=== PATIENT | male | born 1970 | race Caucasian/White ===

== ENCOUNTER 2017-04-06 00:27 | Observation (INO) ==
[2017-04-06] MEDS ORDERED: Naloxone 0.4 MG/ML INJ IVP ONE (00:44)
--- NOTE | 2017-04-06 00:51 | Emergency Department Note ---
Disposition Clinical Impression: Altered mental status Qualifiers: Altered mental status type: unspecified Qualified Code(s): R41.82 - Altered mental status, unspecified Disposition: Admitted As Inpatient Condition: Good Time of Disposition: 04:52 Altered Mental Status HPI - General Chief Complaint: ED Altered Mental Status Stated Complaint: AMS Time Seen by Provider: 04/06/17 00:44 Source: EMS Limitations: altered mental status Nursing Notes Reviewed: Yes Vital Signs Reviewed: Yes - History of Present Illness HPI Narrative: 46-year-old male who arrives via squad with altered mental status. She reported patient appeared confused at all like and was transported here. No reported injuries, alcohol use, drug use. - Related Data Home Medications Medication Instructions Recorded Confirmed Clonidine HCl 05/23/15 05/23/15 Depakote (12 HR) 05/23/15 05/23/15 Perphenazine 05/23/15 05/23/15 Allergies Allergy/AdvReac Type Severity Reaction Status Date / Time No Known Allergies Allergy Verified 05/23/15 17:21 All systems ED: reviewed and negative except as stated. Past Medical History - Past Medical History Medical history: Reports: hypertension Surgical history: Reports: no surgical history Psychiatric history: Reports: bipolar - Social History Smoking Status: Current every day smoker Smokeless Tobacco Status: No Alcohol use: Reports: none Drug use: Reports: none Physical Exam - General Limitations: altered mental status General appearance: in no apparent distress, obtunded - Head Head exam: atraumatic - Eye Eye exam: Absent: conjunctival injection - Expanded Eye Exam Eyelids: bilateral: normal inspection Pupils: Bilateral: regular, round, reactive Sclera/Conjunctival: bilateral: exudate Cornea: bilateral: Normal Inspection - ENT ENT exam: mucous membranes moist - Neck Neck exam: Present: normal inspection - Chest Chest inspection: Present: symmetric chest wall rise - Respiratory Respiratory exam: Absent: respiratory distress - Cardiovascular Cardiovascular exam: Present: regular rate, normal rhythm - Abdominal Exam Abdominal exam: Present: soft, Non-Tender - Extremities Exam Extremities exam: Present: normal inspection, full ROM, normal capillary refill - Back Exam Back exam: Present: full ROM - Neurological Exam Neurological exam: Present: alert, oriented X3 - Expanded Neurological Exam Patient oriented to: Present: person. Absent: place, time Speech: Present: fluid speech Cranial nerves: gag reflex (IX): Normal Coma Scale Eye Opening: To Pain Coma Scale Motor Response: Localizes to Pain Coma Scale Verbal Response: Confused Coma Scale Total: 11 - Psychiatric Psychiatric exam: Present: normal affect, normal mood - Skin Skin exam: Present: warm, dry, intact, normal color. Absent: rash, cyanosis, diaphoresis Course Course Narrative: 46-year-old male who arrives via squad with reported altered mental status. Patient was found on the ground grabbing things. No reported fall. No Narcan in route. Patient seen and examined. Vitals stable. He is somnolent,confused, localizes to pain, eyes closed. BG 116. No response to IV Narcan. Discussed patient with Dr. Weir, who agreed for CT head for AMS evaluation. - Reevaluation(s) Reevaluation #1: Patient was discussed with Dr. Johns, who agreed to see patient in this department. Dr. Johns did visit patient, and per director of community center he advised admission to ICU. Time: 04:52 Vital Signs Temperature 98.8 F 04/06/17 00:29 Pulse Rate 108 04/06/17 00:29 Respiratory Rate 16 04/06/17 00:29 Blood Pressure 128/76 04/06/17 00:29 O2 Sat by Pulse Oximetry 96 04/06/17 00:29 Temperature 98.8 F 04/06/17 00:29 Pulse Rate 87 04/06/17 06:25 Respiratory Rate 18 04/06/17 06:25 Blood Pressure 128/75 04/06/17 06:25 O2 Sat by Pulse Oximetry 99 04/06/17 06:25 Oxygen Delivery Oxygen Delivery Room Air Altered Mental Status - [facility] Narrative Medical decision making narrative: Patient presents by squad with altered mental status. No reported drug use or intoxication. Patient appeared very somnolent, responded to pain, he was able to tell me his name, but the rest of his speech appeared to be comprehensible. Workup showed no evidence of infection, urine drug screen negative. CT negative. I saw no evidence of any injury or trauma. I discussed patient with Dr. Weir, also taste on the patient and agreed for admission for altered mental status. Patient was accepted by hospitalist, trauma, she also had a stomach patient and agreed for admission.. Prior to patient leaving the department, nursing reported the patient had appeared to be coming more alert. His vitals have been stable. Chest X-Ray 04/06/17 00:44 IMPRESSION: Study is limited due to low lung volumes. Otherwise no definite acute cardiopulmonary findings. D/ / 04/06/2017 07:00:49 Baltazar Rivas MD / [email or web address] Interpreting Provider: Baltazar Rivas MD Head CT 04/06/17 00:57 IMPRESSION: No acute intracranial abnormality. D/ / Sreekanth Espinoza MD / Sreekanth Espinoza MD Interpreting Provider: Sreekanth Espinoza MD All Lab Results (24 Hours) 04/06/17 04/06/17 04/06/17 Range/Units 00:51 01:47 01:47 WBC 9.1 (4.3-11.1) K/mcL RBC 4.05 L (4.19-5.50) M/mcL Hgb 13.2 (12.9-16.9) g/dL Hct 40.5 (37.5-50.1) % MCV 100.0 (83.0-100.0) fL MCH 32.6 (28.0-33.3) pg MCHC 32.6 (31.6-35.5) g/dL RDW 12.5 (11.5-14.5) % Plt Count 248 (140-400) K/mcL MPV 9.5 (9.4-12.4) fL Immature Gran % 0.8 (0-4) % Seg Neutrophils % 67.1 % Lymphocytes % 20.9 % Monocytes % 8.7 % Eosinophils % 1.6 % Basophils % 0.9 % Neutrophils # 6.1 (1.6-8.9) K/mcL Lymphocytes # 1.9 (0.6-4.6) K/mcL Monocytes # 0.8 (0.0-1.3) K/mcL Eosinophils # 0.2 (0.0-0.6) K/mcL Basophils # 0.1 (0.0-0.2) K/mcL Immature Plt Fraction 3.9 (1.1-6.1) % PT 11.7 (9.4-12.1) Seconds INR 1.1 APTT 32.5 (26.0-36.0) Seconds Carboxyhemoglobin (0-5) % Sodium (136-145) mEq/L Potassium (3.5-4.5) mEq/L Chloride (98-109) mEq/L Carbon Dioxide (19-29) mEq/L BUN (8-26) mg/dL Creatinine (0.72-1.25) mg/dL Est GFR ( Amer) (> 60) Est GFR (Non-Af Amer) (> 60) BUN/Creatinine Ratio (6-26) Glucose (70-99) mg/dL POC Glucose 116 H (58-89) Calculated Osmolality (280-300) Calcium (8.6-10.8) mg/dL Total Bilirubin (0.2-1.2) mg/dL Direct Bilirubin (0.0-0.5) mg/dL Indirect Bilirubin (0.0-1.2) mg/dL AST (5-34) Units/L ALT (0-55) Units/L Alkaline Phosphatase (38-126) Units/L Ammonia (18-72) mcmol/L Creatine Kinase (30-200) Units/L Troponin I (0-0.03) ng/mL Serum Total Protein (6.0-8.3) g/dL Albumin (3.5-5.0) g/dL Globulin (2.4-3.5) g/dL Albumin/Globulin Ratio (1.1-2.2) TSH (0.350-4.840) mcIU/mL Urine Color (Yellow) Urine Clarity (Clear) Urine pH (5.0-8.0) pH Units Ur Specific [place] (1.010-1.025) Urine Protein (Neg-Trace) mg/dL Urine Glucose (UA) (Normal) mg/dL Urine Ketones (Negative) mg/dL Urine Blood (Negative) Urine Nitrite (Negative) Urine Bilirubin (Negative) Urine Urobilinogen (Normal) mg/dL Ur Leukocyte Esterase (Negative) Ur Culture Indicated? (NO) Urine Opiates Screen (Viefkh=999) ng/mL Ur Barbiturates Screen (Kjtgwf=078) ng/mL Ur Phencyclidine Scrn (Cutoff=25) ng/mL Ur Amphetamines Screen (Mbpzyx=9916) ng/mL U Benzodiazepines Scrn (Xoijgt=033) ng/mL Urine Cocaine Screen (Cutoff= 300) ng/mL U Marijuana (THC) Screen (Cutoff = 50) ng/mL Ethyl Alcohol (0-10) mg/dL 04/06/17 04/06/17 04/06/17 Range/Units 01:47 01:47 01:47 WBC (4.3-11.1) K/mcL RBC (4.19-5.50) M/mcL Hgb (12.9-16.9) g/dL Hct (37.5-50.1) % MCV (83.0-100.0) fL MCH (28.0-33.3) pg MCHC (31.6-35.5) g/dL RDW (11.5-14.5) % Plt Count (140-400) K/mcL MPV (9.4-12.4) fL Immature Gran % (0-4) % Seg Neutrophils % % Lymphocytes % % Monocytes % % Eosinophils % % Basophils % % Neutrophils # (1.6-8.9) K/mcL Lymphocytes # (0.6-4.6) K/mcL Monocytes # (0.0-1.3) K/mcL Eosinophils # (0.0-0.6) K/mcL Basophils # (0.0-0.2) K/mcL Immature Plt Fraction (1.1-6.1) % PT (9.4-12.1) Seconds INR APTT (26.0-36.0) Seconds Carboxyhemoglobin (0-5) % Sodium 137 (136-145) mEq/L Potassium 3.7 (3.5-4.5) mEq/L Chloride 99 (98-109) mEq/L Carbon Dioxide 26 (19-29) mEq/L BUN 11 (8-26) mg/dL Creatinine 0.73 (0.72-1.25) mg/dL Est GFR ( Amer) > 60 (> 60) Est GFR (Non-Af Amer) > 60 (> 60) BUN/Creatinine Ratio 15 (6-26) Glucose 97 (70-99) mg/dL POC Glucose (58-89) Calculated Osmolality 283 (280-300) Calcium 9.5 (8.6-10.8) mg/dL Total Bilirubin 0.8 (0.2-1.2) mg/dL Direct Bilirubin 0.3 (0.0-0.5) mg/dL Indirect Bilirubin 0.5 (0.0-1.2) mg/dL AST 29 (5-34) Units/L ALT 51 (0-55) Units/L Alkaline Phosphatase 68 (38-126) Units/L Ammonia 32 (18-72) mcmol/L Creatine Kinase 245 H (30-200) Units/L Troponin I 0.00 (0-0.03) ng/mL Serum Total Protein 7.3 (6.0-8.3) g/dL Albumin 3.5 (3.5-5.0) g/dL Globulin 3.8 H (2.4-3.5) g/dL Albumin/Globulin Ratio 0.9 L (1.1-2.2) TSH (0.350-4.840) mcIU/mL Urine Color (Yellow) Urine Clarity (Clear) Urine pH (5.0-8.0) pH Units Ur Specific [place] (1.010-1.025) Urine Protein (Neg-Trace) mg/dL Urine Glucose (UA) (Normal) mg/dL Urine Ketones (Negative) mg/dL Urine Blood (Negative) Urine Nitrite (Negative) Urine Bilirubin (Negative) Urine Urobilinogen (Normal) mg/dL Ur Leukocyte Esterase (Negative) Ur Culture Indicated? (NO) Urine Opiates Screen (Bjtiau=556) ng/mL Ur Barbiturates Screen (Roouwl=690) ng/mL Ur Phencyclidine Scrn (Cutoff=25) ng/mL Ur Amphetamines Screen (Stpksq=1002) ng/mL U Benzodiazepines Scrn (Myvhyl=415) ng/mL Urine Cocaine Screen (Cutoff= 300) ng/mL U Marijuana (THC) Screen (Cutoff = 50) ng/mL Ethyl Alcohol < 10 (0-10) mg/dL 04/06/17 04/06/17 04/06/17 Range/Units 01:47 02:00 02:00 WBC (4.3-11.1) K/mcL RBC (4.19-5.50) M/mcL Hgb (12.9-16.9) g/dL Hct (37.5-50.1) % MCV (83.0-100.0) fL MCH (28.0-33.3) pg MCHC (31.6-35.5) g/dL RDW (11.5-14.5) % Plt Count (140-400) K/mcL MPV (9.4-12.4) fL Immature Gran % (0-4) % Seg Neutrophils % % Lymphocytes % % Monocytes % % Eosinophils % % Basophils % % Neutrophils # (1.6-8.9) K/mcL Lymphocytes # (0.6-4.6) K/mcL Monocytes # (0.0-1.3) K/mcL Eosinophils # (0.0-0.6) K/mcL Basophils # (0.0-0.2) K/mcL Immature Plt Fraction (1.1-6.1) % PT (9.4-12.1) Seconds INR APTT (26.0-36.0) Seconds Carboxyhemoglobin (0-5) % Sodium (136-145) mEq/L Potassium (3.5-4.5) mEq/L Chloride (98-109) mEq/L Carbon Dioxide (19-29) mEq/L BUN (8-26) mg/dL Creatinine (0.72-1.25) mg/dL Est GFR ( Amer) (> 60) Est GFR (Non-Af Amer) (> 60) BUN/Creatinine Ratio (6-26) Glucose (70-99) mg/dL POC Glucose (58-89) Calculated Osmolality (280-300) Calcium (8.6-10.8) mg/dL Total Bilirubin (0.2-1.2) mg/dL Direct Bilirubin (0.0-0.5) mg/dL Indirect Bilirubin (0.0-1.2) mg/dL AST (5-34) Units/L ALT (0-55) Units/L Alkaline Phosphatase (38-126) Units/L Ammonia (18-72) mcmol/L Creatine Kinase (30-200) Units/L Troponin I (0-0.03) ng/mL Serum Total Protein (6.0-8.3) g/dL Albumin (3.5-5.0) g/dL Globulin (2.4-3.5) g/dL Albumin/Globulin Ratio (1.1-2.2) TSH 1.150 (0.350-4.840) mcIU/mL Urine Color Dark Yellow (Yellow) Urine Clarity Clear (Clear) Urine pH 5.5 (5.0-8.0) pH Units Ur Specific [place] 1.027 H (1.010-1.025) Urine Protein Negative (Neg-Trace) mg/dL Urine Glucose (UA) Normal (Normal) mg/dL Urine Ketones Trace H (Negative) mg/dL Urine Blood Negative (Negative) Urine Nitrite Negative (Negative) Urine Bilirubin Negative (Negative) Urine Urobilinogen Normal (Normal) mg/dL Ur Leukocyte Esterase Negative (Negative) Ur Culture Indicated? NO (NO) Urine Opiates Screen Negative (Ojbxnc=225) ng/mL Ur Barbiturates Screen Negative (Yjailt=678) ng/mL Ur Phencyclidine Scrn Negative (Cutoff=25) ng/mL Ur Amphetamines Screen Negative (Pxboub=1947) ng/mL U Benzodiazepines Scrn Negative (Yuayfs=257) ng/mL Urine Cocaine Screen Negative (Cutoff= 300) ng/mL U Marijuana (THC) Screen Negative (Cutoff = 50) ng/mL Ethyl Alcohol (0-10) mg/dL 04/06/17 Range/Units 06:28 WBC (4.3-11.1) K/mcL RBC (4.19-5.50) M/mcL Hgb (12.9-16.9) g/dL Hct (37.5-50.1) % MCV (83.0-100.0) fL MCH (28.0-33.3) pg MCHC (31.6-35.5) g/dL RDW (11.5-14.5) % Plt Count (140-400) K/mcL MPV (9.4-12.4) fL Immature Gran % (0-4) % Seg Neutrophils % % Lymphocytes % % Monocytes % % Eosinophils % % Basophils % % Neutrophils # (1.6-8.9) K/mcL Lymphocytes # (0.6-4.6) K/mcL Monocytes # (0.0-1.3) K/mcL Eosinophils # (0.0-0.6) K/mcL Basophils # (0.0-0.2) K/mcL Immature Plt Fraction (1.1-6.1) % PT (9.4-12.1) Seconds INR APTT (26.0-36.0) Seconds Carboxyhemoglobin 5.3 H (0-5) % Sodium (136-145) mEq/L Potassium (3.5-4.5) mEq/L Chloride (98-109) mEq/L Carbon Dioxide (19-29) mEq/L BUN (8-26) mg/dL Creatinine (0.72-1.25) mg/dL Est GFR ( Amer) (> 60) Est GFR (Non-Af Amer) (> 60) BUN/Creatinine Ratio (6-26) Glucose (70-99) mg/dL POC Glucose (58-89) Calculated Osmolality (280-300) Calcium (8.6-10.8) mg/dL Total Bilirubin (0.2-1.2) mg/dL Direct Bilirubin (0.0-0.5) mg/dL Indirect Bilirubin (0.0-1.2) mg/dL AST (5-34) Units/L ALT (0-55) Units/L Alkaline Phosphatase (38-126) Units/L Ammonia (18-72) mcmol/L Creatine Kinase (30-200) Units/L Troponin I (0-0.03) ng/mL Serum Total Protein (6.0-8.3) g/dL Albumin (3.5-5.0) g/dL Globulin (2.4-3.5) g/dL Albumin/Globulin Ratio (1.1-2.2) TSH (0.350-4.840) mcIU/mL Urine Color (Yellow) Urine Clarity (Clear) Urine pH (5.0-8.0) pH Units Ur Specific [place] (1.010-1.025) Urine Protein (Neg-Trace) mg/dL Urine Glucose (UA) (Normal) mg/dL Urine Ketones (Negative) mg/dL Urine Blood (Negative) Urine Nitrite (Negative) Urine Bilirubin (Negative) Urine Urobilinogen (Normal) mg/dL Ur Leukocyte Esterase (Negative) Ur Culture Indicated? (NO) Urine Opiates Screen (Ilaopy=807) ng/mL Ur Barbiturates Screen (Unxrbs=986) ng/mL Ur Phencyclidine Scrn (Cutoff=25) ng/mL Ur Amphetamines Screen (Jyracw=7600) ng/mL U Benzodiazepines Scrn (Gklnwc=884) ng/mL Urine Cocaine Screen (Cutoff= 300) ng/mL U Marijuana (THC) Screen (Cutoff = 50) ng/mL Ethyl Alcohol (0-10) mg/dL - Lab Data Lab results reviewed: Yes I reviewed the patient's lab results. Result diagrams: 04/06/17 01:47 04/06/17 01:47 Lab Results 04/06/17 04/06/17 04/06/17 Range/Units 00:51 01:47 01:47 WBC 9.1 (4.3-11.1) K/mcL RBC 4.05 L (4.19-5.50) M/mcL Hgb 13.2 (12.9-16.9) g/dL Hct 40.5 (37.5-50.1) % MCV 100.0 (83.0-100.0) fL MCH 32.6 (28.0-33.3) pg MCHC 32.6 (31.6-35.5) g/dL RDW 12.5 (11.5-14.5) % Plt Count 248 (140-400) K/mcL MPV 9.5 (9.4-12.4) fL Immature Gran % 0.8 (0-4) % Seg Neutrophils % 67.1 % Lymphocytes % 20.9 % Monocytes % 8.7 % Eosinophils % 1.6 % Basophils % 0.9 % Neutrophils # 6.1 (1.6-8.9) K/mcL Lymphocytes # 1.9 (0.6-4.6) K/mcL Monocytes # 0.8 (0.0-1.3) K/mcL Eosinophils # 0.2 (0.0-0.6) K/mcL Basophils # 0.1 (0.0-0.2) K/mcL Immature Plt Fraction 3.9 (1.1-6.1) % PT 11.7 (9.4-12.1) Seconds INR 1.1 APTT 32.5 (26.0-36.0) Seconds Sodium (136-145) mEq/L Potassium (3.5-4.5) mEq/L Chloride (98-109) mEq/L Carbon Dioxide (19-29) mEq/L BUN (8-26) mg/dL Creatinine (0.72-1.25) mg/dL Est GFR ( Amer) (> 60) Est GFR (Non-Af Amer) (> 60) BUN/Creatinine Ratio (6-26) Glucose (70-99) mg/dL POC Glucose 116 H (58-89) Calculated Osmolality (280-300) Calcium (8.6-10.8) mg/dL Total Bilirubin (0.2-1.2) mg/dL Direct Bilirubin (0.0-0.5) mg/dL Indirect Bilirubin (0.0-1.2) mg/dL AST (5-34) Units/L ALT (0-55) Units/L Alkaline Phosphatase (38-126) Units/L Ammonia (18-72) mcmol/L Creatine Kinase (30-200) Units/L Troponin I (0-0.03) ng/mL Serum Total Protein (6.0-8.3) g/dL Albumin (3.5-5.0) g/dL Globulin (2.4-3.5) g/dL Albumin/Globulin Ratio (1.1-2.2) TSH (0.350-4.840) mcIU/mL Urine Color (Yellow) Urine Clarity (Clear) Urine pH (5.0-8.0) pH Units Ur Specific [place] (1.010-1.025) Urine Protein (Neg-Trace) mg/dL Urine Glucose (UA) (Normal) mg/dL Urine Ketones (Negative) mg/dL Urine Blood (Negative) Urine Nitrite (Negative) Urine Bilirubin (Negative) Urine Urobilinogen (Normal) mg/dL Ur Leukocyte Esterase (Negative) Ur Culture Indicated? (NO) Urine Opiates Screen (Nvysej=978) ng/mL Ur Barbiturates Screen (Sqguxn=057) ng/mL Ur Phencyclidine Scrn (Cutoff=25) ng/mL Ur Amphetamines Screen (Xzawzt=9948) ng/mL U Benzodiazepines Scrn (Cogfew=769) ng/mL Urine Cocaine Screen (Cutoff= 300) ng/mL U Marijuana (THC) Screen (Cutoff = 50) ng/mL Ethyl Alcohol (0-10) mg/dL 04/06/17 04/06/17 04/06/17 Range/Units 01:47 01:47 01:47 WBC (4.3-11.1) K/mcL RBC (4.19-5.50) M/mcL Hgb (12.9-16.9) g/dL Hct (37.5-50.1) % MCV (83.0-100.0) fL MCH (28.0-33.3) pg MCHC (31.6-35.5) g/dL RDW (11.5-14.5) % Plt Count (140-400) K/mcL MPV (9.4-12.4) fL Immature Gran % (0-4) % Seg Neutrophils % % Lymphocytes % % Monocytes % % Eosinophils % % Basophils % % Neutrophils # (1.6-8.9) K/mcL Lymphocytes # (0.6-4.6) K/mcL Monocytes # (0.0-1.3) K/mcL Eosinophils # (0.0-0.6) K/mcL Basophils # (0.0-0.2) K/mcL Immature Plt Fraction (1.1-6.1) % PT (9.4-12.1) Seconds INR APTT (26.0-36.0) Seconds Sodium 137 (136-145) mEq/L Potassium 3.7 (3.5-4.5) mEq/L Chloride 99 (98-109) mEq/L Carbon Dioxide 26 (19-29) mEq/L BUN 11 (8-26) mg/dL Creatinine 0.73 (0.72-1.25) mg/dL Est GFR ( Amer) > 60 (> 60) Est GFR (Non-Af Amer) > 60 (> 60) BUN/Creatinine Ratio 15 (6-26) Glucose 97 (70-99) mg/dL POC Glucose (58-89) Calculated Osmolality 283 (280-300) Calcium 9.5 (8.6-10.8) mg/dL Total Bilirubin 0.8 (0.2-1.2) mg/dL Direct Bilirubin 0.3 (0.0-0.5) mg/dL Indirect Bilirubin 0.5 (0.0-1.2) mg/dL AST 29 (5-34) Units/L ALT 51 (0-55) Units/L Alkaline Phosphatase 68 (38-126) Units/L Ammonia 32 (18-72) mcmol/L Creatine Kinase 245 H (30-200) Units/L Troponin I 0.00 (0-0.03) ng/mL Serum Total Protein 7.3 (6.0-8.3) g/dL Albumin 3.5 (3.5-5.0) g/dL Globulin 3.8 H (2.4-3.5) g/dL Albumin/Globulin Ratio 0.9 L (1.1-2.2) TSH (0.350-4.840) mcIU/mL Urine Color (Yellow) Urine Clarity (Clear) Urine pH (5.0-8.0) pH Units Ur Specific [place] (1.010-1.025) Urine Protein (Neg-Trace) mg/dL Urine Glucose (UA) (Normal) mg/dL Urine Ketones (Negative) mg/dL Urine Blood (Negative) Urine Nitrite (Negative) Urine Bilirubin (Negative) Urine Urobilinogen (Normal) mg/dL Ur Leukocyte Esterase (Negative) Ur Culture Indicated? (NO) Urine Opiates Screen (Yshtew=650) ng/mL Ur Barbiturates Screen (Fwrteg=467) ng/mL Ur Phencyclidine Scrn (Cutoff=25) ng/mL Ur Amphetamines Screen (Fljyux=6624) ng/mL U Benzodiazepines Scrn (Elywle=616) ng/mL Urine Cocaine Screen (Cutoff= 300) ng/mL U Marijuana (THC) Screen (Cutoff = 50) ng/mL Ethyl Alcohol < 10 (0-10) mg/dL 04/06/17 04/06/17 04/06/17 Range/Units 01:47 02:00 02:00 WBC (4.3-11.1) K/mcL RBC (4.19-5.50) M/mcL Hgb (12.9-16.9) g/dL Hct (37.5-50.1) % MCV (83.0-100.0) fL MCH (28.0-33.3) pg MCHC (31.6-35.5) g/dL RDW (11.5-14.5) % Plt Count (140-400) K/mcL MPV (9.4-12.4) fL Immature Gran % (0-4) % Seg Neutrophils % % Lymphocytes % % Monocytes % % Eosinophils % % Basophils % % Neutrophils # (1.6-8.9) K/mcL Lymphocytes # (0.6-4.6) K/mcL Monocytes # (0.0-1.3) K/mcL Eosinophils # (0.0-0.6) K/mcL Basophils # (0.0-0.2) K/mcL Immature Plt Fraction (1.1-6.1) % PT (9.4-12.1) Seconds INR APTT (26.0-36.0) Seconds Sodium (136-145) mEq/L Potassium (3.5-4.5) mEq/L Chloride (98-109) mEq/L Carbon Dioxide (19-29) mEq/L BUN (8-26) mg/dL Creatinine (0.72-1.25) mg/dL Est GFR ( Amer) (> 60) Est GFR (Non-Af Amer) (> 60) BUN/Creatinine Ratio (6-26) Glucose (70-99) mg/dL POC Glucose (58-89) Calculated Osmolality (280-300) Calcium (8.6-10.8) mg/dL Total Bilirubin (0.2-1.2) mg/dL Direct Bilirubin (0.0-0.5) mg/dL Indirect Bilirubin (0.0-1.2) mg/dL AST (5-34) Units/L ALT (0-55) Units/L Alkaline Phosphatase (38-126) Units/L Ammonia (18-72) mcmol/L Creatine Kinase (30-200) Units/L Troponin I (0-0.03) ng/mL Serum Total Protein (6.0-8.3) g/dL Albumin (3.5-5.0) g/dL Globulin (2.4-3.5) g/dL Albumin/Globulin Ratio (1.1-2.2) TSH 1.150 (0.350-4.840) mcIU/mL Urine Color Dark Yellow (Yellow) Urine Clarity Clear (Clear) Urine pH 5.5 (5.0-8.0) pH Units Ur Specific [place] 1.027 H (1.010-1.025) Urine Protein Negative (Neg-Trace) mg/dL Urine Glucose (UA) Normal (Normal) mg/dL Urine Ketones Trace H (Negative) mg/dL Urine Blood Negative (Negative) Urine Nitrite Negative (Negative) Urine Bilirubin Negative (Negative) Urine Urobilinogen Normal (Normal) mg/dL Ur Leukocyte Esterase Negative (Negative) Ur Culture Indicated? NO (NO) Urine Opiates Screen Negative (Jmatfv=057) ng/mL Ur Barbiturates Screen Negative (Pzhtqa=621) ng/mL Ur Phencyclidine Scrn Negative (Cutoff=25) ng/mL Ur Amphetamines Screen Negative (Mokxyz=9028) ng/mL U Benzodiazepines Scrn Negative (Forjwg=240) ng/mL Urine Cocaine Screen Negative (Cutoff= 300) ng/mL U Marijuana (THC) Screen Negative (Cutoff = 50) ng/mL Ethyl Alcohol (0-10) mg/dL - Radiology Data Radiology results reviewed: Yes I reviewed the patient's radiology results. TPA Checklist - LKW: 3-4.5 hrs Add. Warnings/Precautions Patient/family understanding: The patient/family members have been counseled and understood the risk, benefit , and alternatives of treatment. Attestation Statement - Attestation Attestation: I, Nilson Weir MD, personally evaluated this patient and discussed their management with the midlevel provicer, PAC/INFORMATION SERVICES MANAGER. I reviewed the midlevel provider 's note and agree with the documented findings, medical decision making, and plan of care. 46-year-old male presents to the emergency department by ambulance after he was apparently found in the street for side the street with altered mental status. Here the patient appears to be overmedicated. He responds to physical stimuli. He does wake up with stimulation and mumbles but it is difficult to understand. He did admit to me that he took some extra medicine tonight. On examination patient is a well-developed well-nourished male who is altered but responds to physical stimuli. There is no cyanosis or diaphoresis. Vital signs stable. PERRL. Bilateral conjunctival injection. Mucous membranes dry. Neck is supple and nontender. No lymphadenopathy. Breath sounds are clear and equal bilaterally. Heart regular rate and rhythm. Abdomen soft and nontender with normal bowel sounds. No tympany or distention. No gross focal neurological deficits. Labs reviewed. Chest x-ray negative. Head CT negative. EKG normal. Patient observed here in the emergency department for several hours with minimal improvement in his mental status. The hospitalist, Dr. Johns, was consulted and accepted admission of the patient.
[2017-04-06 01:55] LABS: Basophils # 0.1 K/mcL (0.0-0.2); Basophils % 0.9 %; Eosinophils # 0.2 K/mcL (0.0-0.6); Eosinophils % 1.6 %; Hematocrit 40.5 % (37.5-50.1); Hemoglobin 13.2 g/dL (12.9-16.9); Immature Granulocytes % 0.8 % (0-4); Immature Platelets 3.9 % (1.1-6.1); Lymphocytes # 1.9 K/mcL (0.6-4.6); Lymphocytes % 20.9 %; Mean Corpuscular HGB Conc 32.6 g/dL (31.6-35.5); Mean Corpuscular Hemoglobin 32.6 pg (28.0-33.3); Mean Platelet Volume 9.5 fL (9.4-12.4); Monocytes # 0.8 K/mcL (0.0-1.3); Monocytes % 8.7 %; Neutrophils # 6.1 K/mcL (1.6-8.9); Platelet Count 248 K/mcL (140-400); Red Blood Count 4.05 M/mcL (4.19-5.50); Red Cell Distribution Width 12.5 % (11.5-14.5); Segmented Neutrophils % 67.1 %
[2017-04-06] MEDS ORDERED: 0.9 % Sodium Chloride 1,000 ML IVC ONE ×2 (01:59→02:36)
[2017-04-06 02:00] LABS: INR 1.1; Prothrombin Time 11.7 Seconds (9.4-12.1)
[2017-04-06 02:02] LABS: Activated Partial Thrombo Time 32.5 Seconds (26.0-36.0)
[2017-04-06 02:10] LABS: Alanine Aminotransferase 51 Units/L (0-55); Albumin 3.5 g/dL (3.5-5.0); Albumin/Globulin Ratio 0.9 (1.1-2.2); Alkaline Phosphatase 68 Units/L (38-126); Aspartate Amino Transferase 29 Units/L (5-34); BUN/Creatinine Ratio 15 (6-26); Bilirubin,Direct 0.3 mg/dL (0.0-0.5); Bilirubin,Indirect 0.5 mg/dL (0.0-1.2); Bilirubin,Total 0.8 mg/dL (0.2-1.2); Blood Urea Nitrogen 11 mg/dL (8-26); Calcium 9.5 mg/dL (8.6-10.8); Carbon Dioxide 26 mEq/L (19-29); Chloride 99 mEq/L (98-109); Creatine Kinase 245 Units/L (30-200); Globulin 3.8 g/dL (2.4-3.5); Glucose 97 mg/dL (70-99); Osmolality,Calculated 283 (280-300); Potassium 3.7 mEq/L (3.5-4.5); Sodium 137 mEq/L (136-145); Total Protein 7.3 g/dL (6.0-8.3); eGFR For African Americans > 60 (> 60); eGFR For Non-African Americans > 60 (> 60)
[2017-04-06 02:12] LABS: Ethanol < 10 mg/dL (0-10)
[2017-04-06 02:19] LABS: Bilirubin,Urine Negative (Negative); Blood,Urine Negative (Negative); Clarity,Urine Clear (Clear); Color,Urine Dark Yellow (Yellow); Glucose,Urine (UA) Normal (Normal); Ketones,Urine Trace mg/dL (Negative); Leukocyte Esterase,Urine Negative (Negative); Nitrite,Urine Negative (Negative); PH,Urine 5.5 pH Units (5.0-8.0); Protein,Urine Negative (Neg-Trace); Specific Gravity,Urine 1.027 (1.010-1.025); Urobilinogen,Urine Normal (Normal)
[2017-04-06 02:25] LABS: Amphetamine Screen,Urine Negative ng/mL (Cutoff=1000); Barbiturate Screen,Urine Negative ng/mL (Cutoff=200); Benzodiazepines Screen,Urine Negative ng/mL (Cutoff=200); Cannabinoid Screen,Urine Negative ng/mL (Cutoff = 50); Cocaine Screen,Urine Negative ng/mL (Cutoff= 300); Opiate Screen,Urine Negative ng/mL (Cutoff=300); Phencyclidine Screen,Urine Negative ng/mL (Cutoff=25)
[2017-04-06] MEDS ORDERED: Naloxone 0.4 MG/ML INJ IVP PRN (05:06)
--- NOTE | 2017-04-06 05:13 | Internal Med History&Physical ---
Date of Encounter: 04/06/17 Time of Encounter: 04:45 Assessment and Plan (1) Altered mental status Current visit: Yes Status: Acute - Found on ground, may be in the garage. - Unknown etiology at this time. Differentials include seizure (given questionable seizure history), carbon monoxide poisoning (given patient may be found in a garage), intoxication (but UDS and serum EtOH are so far negative), infections (doubt given normal WBC and UA does not suggest UTI). - Will obtain EEG for further evaluation, start Dilantin and seizure precaution. - Will also check carboxyhemoglobin, ABG and TSH. - Continue IV NS. - Closely monitor. Qualifiers: Altered mental status type: unspecified Qualified Code(s): R41.82 - Altered mental status, unspecified Internal Medicine - H&P: HPI Chief complaint: Altered mental status Admitted From: Emergency Dept Plans for Post Hospital Care: Home History of present illness: Mr. Orlando is a 46 year old male with unknown PMH who was sent to [facility] ED via EMS after being found on the ground grabbing things. IV Narca was given but no significant response noted. On the encounter, patient remains somnolent but arousable to verbal stimuli. Patient is able to tell me he is in hospital and the year is 2017, no pain or shortness of breath. But he cannot answer my questions appropriately. No family member at bedside. So much of history was obtained from review of medical records and talking to ED staffs. Per patient's nurse, patient was found in a garage. Patient's sitter feels that patient's mental status slowly improves over time. Depakote was listed as one of his home medications back in [address] [address] [place] CT head in ED found no acute intracranial abnormality. Labs are unremarkable with UA negative for UTI and negative UDS & serum EtOH level. Past Med Surg Social Fam HX - Past Medical History Medical history: hypertension Psychiatric history: bipolar - Past Surgical History Surgical History: no surgical history - Social History Smoking Status: Current every day smoker Smokeless Tobacco Status: No Alcohol use: none Drug use: none Internal Medicine - H&P: Meds Clonidine HCl 05/23/15 [History] Depakote (12 HR) 05/23/15 [History] Perphenazine 05/23/15 [History] Allergies No Known Allergies Allergy (Verified 05/23/15 17:21) ROS unobtainable: due to mental status All Systems PM: A 10-system review of systems was performed and is negative for pertinent findings except as documented above in the HPI. - Constitutional Vitals: Temp Pulse Resp BP Pulse Ox 98.8 F 86 20 139/86 98 04/06/17 00:29 04/06/17 04:54 04/06/17 04:54 04/06/17 04:54 04/06/17 04:54 General appearance: Present: A&O X 2 (Oriented to self, "hospital" and "2017". GCS 13.), no acute distress. Absent: answers questions appropriately - Head Head exam: Present: atraumatic, normocephalic - Eye Eye exam: Present: PERRL, conjuntiva pink, sclera anicteric - Neck Neck exam general surgery: Present: supple, trachea midline. Absent: lymphadenopathy - Respiratory Respiratory exam: Present: CTAB. Absent: accessory muscle use, rales, rhonchi, wheezes - Cardiovascular Cardiovascular exam: Present: RRR, +S1, +S2. Absent: diastolic murmur, gallop, rubs, systolic murmur - GI/Abdominal GI/Abdominal exam: Present: normal bowel sounds, soft, no peritoneal signs. Absent: distended, tenderness - Extremities Exam Extremities exam: Present: warm, radial pulses palpable and symetrical. Absent : calf tenderness, cyanotic, pedal edema - Neurological Exam Neurological exam: Absent: pronater drift, facial droop Additional comments: Limited as patient is hypersomnolent and is unable to answer question or follow command appropriately. - Skin Skin exam: Present: dry, intact Internal Med - H&P Results - Labs CBC & Chem 7: 04/06/17 01:47 04/06/17 01:47 Labs: Short CBC 04/06/17 Range/Units 01:47 WBC 9.1 (4.3-11.1) K/mcL Hgb 13.2 (12.9-16.9) g/dL Hct 40.5 (37.5-50.1) % Plt Count 248 (140-400) K/mcL Neutrophils # 6.1 (1.6-8.9) K/mcL BMP 04/06/17 01:47 Sodium 137 Potassium 3.7 Chloride 99 Carbon Dioxide 26 BUN 11 Creatinine 0.73 Glucose 97 Calcium 9.5 Cardiac Enzymes 04/06/17 Range/Units 01:47 Troponin I 0.00 (0-0.03) ng/mL Liver Function 04/06/17 Range/Units 01:47 Total Bilirubin 0.8 (0.2-1.2) mg/dL Direct Bilirubin 0.3 (0.0-0.5) mg/dL AST 29 (5-34) Units/L ALT 51 (0-55) Units/L Alkaline Phosphatase 68 (38-126) Units/L Albumin 3.5 (3.5-5.0) g/dL Urine 04/06/17 Range/Units 02:00 Urine Color Dark Yellow (Yellow) Urine Clarity Clear (Clear) Urine pH 5.5 (5.0-8.0) pH Units Ur Specific [place] 1.027 H (1.010-1.025) Urine Protein Negative (Neg-Trace) mg/dL Urine Glucose (UA) Normal (Normal) mg/dL - Impressions ITS Impressions Chest X-Ray 04/06/17 00:44 IMPRESSION: Study is limited due to low lung volumes. Otherwise no definite acute cardiopulmonary findings D/ / Baltazar Rivas MD / Baltazar Rivas MD Interpreting Provider: Baltazar Rivas MD Head CT 04/06/17 00:57 IMPRESSION: No acute intracranial abnormality. D/ / Sreekanth Espinoza MD / Sreekanth Espinoza MD Interpreting Provider: Sreekanth Espinoza MD
[2017-04-06] MEDS ORDERED: Phenytoin 1,000 MG in SYRINGE 1 EACH IVPB ONE (05:14)
--- NOTE | 2017-04-06 05:22 | Event Note ---
Date of Encounter: 04/06/17 Time of Encounter: 05:19 Patient seen and examined. Found unresponsive in street (or garage). Etiology unclear and he is still unable to provide history. But he is becoming more alert and oriented. Urine drug screen negative. He is on depakote at home and mentioned that he had history of seizure but not in a long time. Start phenytoin. Check carbon monoxide level. CT head without bleed. He is aferile without leucocytosis. He is maintaining his airway, has a positive cough and gag. GCS 13
[2017-04-06] MEDS: 0.9 % Sodium Chloride 1,000 ML IVC SCH ×2 (06:31→16:19)
--- NOTE | 2017-04-06 10:36 | Neurology - Consult Note ---
Date of Encounter: 04/06/17 Time of Encounter: 10:32 Assessment and Plan (1) Altered mental status Current Visit: Yes Status: Acute 46-year old man with psychiatric history, on depakote with AMS. Broad differential. Carbon monoxide poisoning was suspected given the circumstances - confirmation awaited. Normal ammonia (although on depakote). UDS negative, UA negative. Etiology unclear. From a neurology standpoint, stroke and seizures should be excluded. MRI brain without contrast, EEG (both for Friday) . Post-ictal psychosis can present like this as well, but given his psychiatric history, it is more likely a manic phase. Need to check serum toxicology for other drugs, such as K2 spice. For completeness, thiamine deficiency should be considered (pt should be placed on thiamine iv (banana bag) ; testing B1 levels will take a long time to come back. Seizure precautions. [place] protocol. IV ativan 1 mg x1 to see if the behavior change is related to ictal process. Given the multivarious neuropsychiatric symptoms, consider urine /serum copper testing - for Emmanuel's or rarely, [place]'s or Fahr's disease ( this can be done in outpatient setting). Will follow, after these results are back. Pt will need outpatient follow-up with Dr. Lundberg/Javi. Qualifiers: Altered mental status type: unspecified Qualified Code(s): R41.82 - Altered mental status, unspecified History of Present Illness Chief complaint: AMS HPI: Mr. Orlando is a 46 year old male with prior history of hypertension (states he is on lisinopril) and multiple psychiatric issues (on depakote for this), who was apparently found down in his garage and was brought to the medical center. He apparently lives with his friends (Ana?), previously (has two children), but not much in contact with any of his family members. He states that he is not sure why he came to the hospital, but knows he is at the [facility]. He states that the last thing he remembers is that he was in his garage. He reports that he has no history of seizures. He states he smokes and drinks (only occasionally, but a lot when he does). No drugs - but he recently had a quarrel with his roommates - unclear why and unclear if drug was involved. No fevers/chills/sob/palpitations. No prior history of strokes. He has history of manic depressive disorder. Ammonia 37 (nl), UA - nl, UDS - nl. Past Med Surg Social Fam HX - Past Medical History Medical history: hypertension Psychiatric history: bipolar, depression, schizophrenia, other (schizoaffective disorder, manic disorder) - Past Surgical History Surgical History: no surgical history - Social History Smoking Status: Current every day smoker Smokeless Tobacco Status: No Alcohol use: occasionally (but lots, when he does) Drug use: none, other (unclear) Occupational status: unemployed Current living situation: Other (living with friends?) Activity Level: Independent ambulation Additional social history: . has 2 kids. has one sister. No family contact, however. - Family History Mother History Unknown: Yes Medications and Allergies Clonidine HCl 05/23/15 [History] Depakote (12 HR) 05/23/15 [History] Perphenazine 05/23/15 [History] Allergies No Known Allergies Allergy (Verified 05/23/15 17:21) All Systems: A 10-system review of systems was performed and is negative for pertinent findings except as documented above in the HPI. Physical Examination - Vital Signs Vital Signs: Initial Vital Signs Temp Pulse Resp BP Pulse Ox 98.8 F 108 16 128/76 96 04/06/17 00:29 04/06/17 00:29 04/06/17 00:29 04/06/17 00:29 04/06/17 00:29 Vital Signs - 24 hr 04/06/17 00:29 04/06/17 04:54 04/06/17 06:05 Temperature 98.8 F Pulse Rate 108 86 Respiratory Rate 16 20 20 Blood Pressure 128/76 139/86 139/86 O2 Sat by Pulse Oximetry 96 98 04/06/17 06:20 04/06/17 06:25 04/06/17 10:30 Temperature 97.9 F Pulse Rate 84 87 80 Respiratory Rate 18 20 Blood Pressure 128/75 97/60 O2 Sat by Pulse Oximetry 99 97 - Exam Exam: Elongated calves. Has unstable gait. Left eye congenitally small, and with strabismus/dysconjugate gaze. No asterixis. - Constitutional General appearance: comfortable, other (disinhibted, dishevelled) - Neurologic Sensorimotor examination: intact Detailed motor examination: full strength in all major muscle groups Motor examination - right side: 5: deltoids, biceps, triceps, wrist flexion, wrist extension, assistant center director, hip flexors, tibialis Anterior, quadriceps, toe extension (EHL), plantarflexion Motor examination - left side: 01/03: deltoids, biceps, triceps, wrist flexion, wrist extension, hip flexors, assistant center director, quadriceps, tibialis Anterior, toe extension (EHL), plantarflexion Detailed sensory examination: intact Reflex and gait examination: tandem gait (cannot perform) Reflexes: Biceps: 2+, Triceps: 2+, Brachioradialis: 2+, Patella: 2+, Achilles: 2 + Mental Status Examination: awake, alert, oriented to person, oriented to place, oriented to time, follows commands appropriately (flirtatious to staff; may be confabulating), answers questions appropriately, no agnosia, no aphasia, no aproxia, makes eye contact, follows simple commands Cranial nerve examination: PERRL, EOMI, visual koenig intact, corneal reflexes brisk symmetrically, sensory to face intact, mastication intact, no facial asymmetry is present, no dysarthria, hearing is intact symmetrically, soft palate elevates bilaterally upon phonation, gag reflex intact, flexes SCM and trapezius muscles symmetrically with full power, tongue protrudes midline, no atrophy or facial fasiculations present Cerebellar examination: no dysmetria (mild dysmetria on the right), performs finger to nose and heel to etienne symmetrically without ataxia, no gait ataxia, no truncal ataxia, no difficulty with rapid alternating movements Results - Laboratory Findings CBC and BMP: 04/06/17 01:47 04/06/17 01:47 Abnormal lab findings: Abnormal lab results RBC 4.05 M/mcL (4.19-5.50) L 04/06/17 01:47 Carboxyhemoglobin 5.3 % (0-5) H 04/06/17 06:28 POC Glucose 116 (58-89) H 04/06/17 00:51 Creatine Kinase 245 Units/L (30-200) H 04/06/17 01:47 Globulin 3.8 g/dL (2.4-3.5) H 04/06/17 01:47 Albumin/Globulin Ratio 0.9 (1.1-2.2) L 04/06/17 01:47 Ur Specific [place] 1.027 (1.010-1.025) H 04/06/17 02:00 Urine Ketones Trace mg/dL (Negative) H 04/06/17 02:00 Laboratory Results WBC 9.1 K/mcL (4.3-11.1) 04/06/17 01:47 RBC 4.05 M/mcL (4.19-5.50) L 04/06/17 01:47 Hgb 13.2 g/dL (12.9-16.9) 04/06/17 01:47 Hct 40.5 % (37.5-50.1) 04/06/17 01:47 MCV 100.0 fL (83.0-100.0) 04/06/17 01:47 MCH 32.6 pg (28.0-33.3) 04/06/17 01:47 MCHC 32.6 g/dL (31.6-35.5) 04/06/17 01:47 RDW 12.5 % (11.5-14.5) 04/06/17 01:47 Plt Count 248 K/mcL (140-400) 04/06/17 01:47 MPV 9.5 fL (9.4-12.4) 04/06/17 01:47 Immature Gran % 0.8 % (0-4) 04/06/17 01:47 Seg Neutrophils % 67.1 % 04/06/17 01:47 Lymphocytes % 20.9 % 04/06/17 01:47 Monocytes % 8.7 % 04/06/17 01:47 Eosinophils % 1.6 % 04/06/17 01:47 Basophils % 0.9 % 04/06/17 01:47 Neutrophils # 6.1 K/mcL (1.6-8.9) 04/06/17 01:47 Lymphocytes # 1.9 K/mcL (0.6-4.6) 04/06/17 01:47 Monocytes # 0.8 K/mcL (0.0-1.3) 04/06/17 01:47 Eosinophils # 0.2 K/mcL (0.0-0.6) 04/06/17 01:47 Basophils # 0.1 K/mcL (0.0-0.2) 04/06/17 01:47 Immature Plt Fraction 3.9 % (1.1-6.1) 04/06/17 01:47 PT 11.7 Seconds (9.4-12.1) 04/06/17 01:47 INR 1.1 04/06/17 01:47 APTT 32.5 Seconds (26.0-36.0) 04/06/17 01:47 Carboxyhemoglobin 5.3 % (0-5) H 04/06/17 06:28 Sodium 137 mEq/L (136-145) 04/06/17 01:47 Potassium 3.7 mEq/L (3.5-4.5) 04/06/17 01:47 Chloride 99 mEq/L (98-109) 04/06/17 01:47 Carbon Dioxide 26 mEq/L (19-29) 04/06/17 01:47 BUN 11 mg/dL (8-26) 04/06/17 01:47 Creatinine 0.73 mg/dL (0.72-1.25) 04/06/17 01:47 Est GFR ( Amer) > 60 (> 60) 04/06/17 01:47 Est GFR (Non-Af Amer) > 60 (> 60) 04/06/17 01:47 BUN/Creatinine Ratio 15 (6-26) 04/06/17 01:47 Glucose 97 mg/dL (70-99) 04/06/17 01:47 POC Glucose 116 (58-89) H 04/06/17 00:51 Calculated Osmolality 283 (280-300) 04/06/17 01:47 Calcium 9.5 mg/dL (8.6-10.8) 04/06/17 01:47 Total Bilirubin 0.8 mg/dL (0.2-1.2) 04/06/17 01:47 Direct Bilirubin 0.3 mg/dL (0.0-0.5) 04/06/17 01:47 Indirect Bilirubin 0.5 mg/dL (0.0-1.2) 04/06/17 01:47 AST 29 Units/L (5-34) 04/06/17 01:47 ALT 51 Units/L (0-55) 04/06/17 01:47 Alkaline Phosphatase 68 Units/L (38-126) 04/06/17 01:47 Ammonia 32 mcmol/L (18-72) 04/06/17 01:47 Creatine Kinase 245 Units/L (30-200) H 04/06/17 01:47 Troponin I 0.00 ng/mL (0-0.03) 04/06/17 01:47 Serum Total Protein 7.3 g/dL (6.0-8.3) 04/06/17 01:47 Albumin 3.5 g/dL (3.5-5.0) 04/06/17 01:47 Globulin 3.8 g/dL (2.4-3.5) H 04/06/17 01:47 Albumin/Globulin Ratio 0.9 (1.1-2.2) L 04/06/17 01:47 TSH 1.150 mcIU/mL (0.350-4.840) 04/06/17 01:47 Urine Color Dark Yellow (Yellow) 04/06/17 02:00 Urine Clarity Clear (Clear) 04/06/17 02:00 Urine pH 5.5 pH Units (5.0-8.0) 04/06/17 02:00 Ur Specific [place] 1.027 (1.010-1.025) H 04/06/17 02:00 Urine Protein Negative mg/dL (Neg-Trace) 04/06/17 02:00 Urine Glucose (UA) Normal mg/dL (Normal) 04/06/17 02:00 Urine Ketones Trace mg/dL (Negative) H 04/06/17 02:00 Urine Blood Negative (Negative) 04/06/17 02:00 Urine Nitrite Negative (Negative) 04/06/17 02:00 Urine Bilirubin Negative (Negative) 04/06/17 02:00 Urine Urobilinogen Normal mg/dL (Normal) 04/06/17 02:00 Ur Leukocyte Esterase Negative (Negative) 04/06/17 02:00 Ur Culture Indicated? NO (NO) 04/06/17 02:00 Urine Opiates Screen Negative ng/mL (Nbhbts=068) 04/06/17 02:00 Ur Barbiturates Screen Negative ng/mL (Ocwtdx=940) 04/06/17 02:00 Ur Phencyclidine Scrn Negative ng/mL (Cutoff=25) 04/06/17 02:00 Ur Amphetamines Screen Negative ng/mL (Hkmicl=0961) 04/06/17 02:00 U Benzodiazepines Scrn Negative ng/mL (Yiegyu=931) 04/06/17 02:00 Urine Cocaine Screen Negative ng/mL (Cutoff= 300) 04/06/17 02:00 U Marijuana (THC) Screen Negative ng/mL (Cutoff = 50) 04/06/17 02:00 Ethyl Alcohol < 10 mg/dL (0-10) 04/06/17 01:47 Impressions Chest X-Ray 04/06/17 00:44 IMPRESSION: Study is limited due to low lung volumes. Otherwise no definite acute cardiopulmonary findings. D/ / 04/06/2017 07:00:49 Baltazar Rivas MD / [facility] Interpreting Provider: Baltazar Rivas MD Head CT 04/06/17 00:57 IMPRESSION: No acute intracranial abnormality. D/ / Sreekanth Espinoza MD / Sreekanth Espinoza MD Interpreting Provider: Sreekanth Espinoza MD Consult Discharge Plan - Plan Referrals: NONE,PCP [Primary Care Provider] -
[2017-04-06] MEDS ORDERED: *HR* LORazepam 2 MG/ML VIAL IVP ONE (10:38)
[2017-04-06] MEDS ORDERED: *HR* LORazepam 2 MG/ML VIAL ONE (10:40)
[2017-04-06] MEDS: Nicotine 21 MG PATCH.TD24 TD SCH (10:48)
[2017-04-06] MEDS: Divalproex (12 HR) 500 MG TABLET PO SCH ×2 (10:48→20:33)
--- NOTE | 2017-04-06 13:24 | Internal Med Progress Note ---
Date of Encounter: 04/06/17 Time of Encounter: 13:23 - Assessment and plan (1) Acute delirium Current Visit: Yes Status: Acute Assessment and plan: His delirium mostly due to metabolic encephalopathy with dehydration also concerning for post ictal confusion and possible acute psychotic episode at this point definitely need to r/o CVA / Seizure MRI of brain and EEG in AM Neuro checks q6hr Ativan PO PRN for agitation / withdrawl symptoms IV fluids will feed him when he is completely awake Neuro on board (2) Acute metabolic encephalopathy Current Visit: Yes Status: Acute (3) Seizure Current Visit: Yes Status: Acute Assessment and plan: cont Depakot and Phenytoin EEG in AM (4) Carbon monoxide exposure Current Visit: Yes Status: Acute Assessment and plan: noticed elevated carboxy hemoglobin Cont O2 Duoneb PRN (5) Rhabdomyolysis Current Visit: Yes Status: Acute Assessment and plan: Slightly elevated CK total.. due to dehydration cont trend on CK total cont IVF Qualifiers: Qualified Code(s): M62.82 - Rhabdomyolysis (6) Psychiatric disorder Current Visit: Yes Status: Acute Assessment and plan: Will consult [facility] AM after ruling out other etiologies - Subjective Interval history: Mr. Orlando is a 46 year old male with unknown PMH who was sent to [place] ED via EMS after being found on the ground grabbing things. IV Narca was given but no significant response noted. On the encounter, patient remains somnolent but arousable to verbal stimuli. Pt was admitted in the hospital for severe acute delirium. Apparently this morning he was more alert, awake and Oriented as per nurse. But he just received Ativan and sleeping comfortably now. unable to obtain any history from pt now. - Constitutional Vitals: Temp Pulse Resp BP Pulse Ox 97.9 F 80 20 97/60 97 04/06/17 10:30 04/06/17 12:09 04/06/17 10:30 04/06/17 10:30 04/06/17 10:30 General appearance: Present: no acute distress (sleeping comfortably). Absent: answers questions appropriately - Head Head exam: Present: atraumatic, normal inspection - Eye Eye exam: Present: PERRL (constrictive) - Neck Neck exam general surgery: Present: supple - Respiratory Respiratory exam: Present: decreased breath sounds, wheezes. Absent: rales, respiratory distress, rhonchi - Cardiovascular Cardiovascular exam: Present: RRR, +S1, +S2. Absent: diastolic murmur, gallop, rubs, systolic murmur - GI/Abdominal GI/Abdominal exam: Present: normal bowel sounds, soft, no peritoneal signs. Absent: distended, tenderness - Neurological Exam Neurological exam: Present: altered - Psychiatric Psychiatric exam: Present: manic Internal Medicine: Result - Labs CBC & Chem 7: 04/06/17 01:47 04/06/17 01:47 - ABG Interpretation ABG results: PT/INR, D-dimer PT 11.7 Seconds (9.4-12.1) 04/06/17 01:47 Consult Discharge Plan - Plan Referrals: NONE,PCP [Primary Care Provider] -
[2017-04-07 01:35] LABS: Basophils # 0.1 K/mcL (0.0-0.2); Basophils % 0.7 %; Eosinophils # 0.2 K/mcL (0.0-0.6); Eosinophils % 2.6 %; Hematocrit 41.5 % (37.5-50.1); Hemoglobin 13.3 g/dL (12.9-16.9); Immature Granulocytes % 0.6 % (0-4); Lymphocytes # 1.8 K/mcL (0.6-4.6); Lymphocytes % 21.4 %; Mean Corpuscular Hemoglobin 32.4 pg (28.0-33.3); Mean Platelet Volume 9.5 fL (9.4-12.4); Monocytes # 0.5 K/mcL (0.0-1.3); Monocytes % 6.3 %; Neutrophils # 5.9 K/mcL (1.6-8.9); Platelet Count 262 K/mcL (140-400); Red Blood Count 4.11 M/mcL (4.19-5.50); Red Cell Distribution Width 12.5 % (11.5-14.5); Segmented Neutrophils % 68.4 %
[2017-04-07] MEDS: 0.9 % Sodium Chloride 1,000 ML IVC SCH ×3 (01:42→06:26)
[2017-04-07 02:24] LABS: BUN/Creatinine Ratio 17 (6-26); Blood Urea Nitrogen 12 mg/dL (8-26); Calcium 8.7 mg/dL (8.6-10.8); Carbon Dioxide 26 mEq/L (19-29); Chloride 104 mEq/L (98-109); Glucose 132 mg/dL (70-99); Magnesium 1.9 mg/dL (1.6-2.6); Osmolality,Calculated 286 (280-300); Potassium 4.1 mEq/L (3.5-4.5); Sodium 137 mEq/L (136-145); eGFR For African Americans > 60 (> 60); eGFR For Non-African Americans > 60 (> 60)
[2017-04-07] MEDS: Divalproex (12 HR) 500 MG TABLET PO SCH (08:28)
[2017-04-07] MEDS: Nicotine 21 MG PATCH.TD24 TD SCH (08:28)
--- NOTE | 2017-04-07 10:15 | EEG/EMG/Oth Biometrics Report ---
EEG Procedure Report EEG Procedure: Routine EEG Procedure Note: This EEG was acquired with standard international 1020 system with EKG recording. The background EEG activity was characterized by the presence of posterior dominant alpha rhythm with the best frequency up to 11 Hz.. The background activity was reactive to eye openings. Sleep stages were characterized by the presence of background fragmentation, vertex waves, K complexes, and sleep spindles. There are no electrographic seizures identified during this tracing. There are no epileptiform discharges and focal slowing noted during this recording. Photic stimulation produced no abnormalities. Hyperventilation procedure was not performed EKG tracing showed no significant cardiac dysrhythmia. Impression: This is essentially a normal awake and asleep EEG. Clinical Correlation: Normal EEGs, however, do not exclude epilepsy. Clinical correlation advised.
[2017-04-07] MEDS ORDERED: *HR* LORazepam 0.5 MG TABLET PO PRN (11:23)
--- NOTE | 2017-04-07 15:16 | Electrocardiograph Report ---
[address] [address] Test Date: 2017-04-06 Pat Name: Ulices Orlando Department: [id number] Room: 2N13 Gender: M [employer] Business Representative: TYREL : 1970 Requested By: Tapan Mccain Order Number: [id number] Reading MD: Tammy Taylor Measurements Intervals [place] Rate: 99 P: 11 MA: 129 QRS: 14 QRSD: 95 T: 32 QT: 357 QTc: 413 Interpretive Statements SINUS RHYTHM Electronically Signed On 04-06-2017 22:25:13 EDT by Tammy Taylor
--- NOTE | 2017-04-07 15:27 | Neurology - Consult Note ---
Date of Encounter: 04/07/17 Time of Encounter: 12:00 Assessment and Plan (1) Acute metabolic encephalopathy Current Visit: Yes Status: Acute Patient was found down in own garage, unclear etiology, work up for neurological causes returned negative. MRI of brain showed no intracranial abnormality. EEG read normal. Nonfocal neurological examination. No nuchal rigidity, no leucocytosis, and no signs suggesting MERCANTILE REPORTER infection. Likelihood of seizure can be in the differentials due to his chronic alcohol use. However, patient is currently on Depakote for psychiatric condition and he denies previous history of seizures. Will recommend no additional seizure medication at this time. Medically, patient does have elevated carbon monoxide and will defer to medical team for proper treatment. From neurological perspective, no further testing appears necessary. Testing for Emmanuel disease not necessary since he does not have movement disorder, and is 46 year old now. Please continue medical and supportive care. Please call if any questions. Will sign off at this time. History of Present Illness Chief complaint: confusion HPI: Mr. Orlando is a 46 year old male with PMH significant for alcohol use, psychiatric disorder who developed acute mental status changes. per medical records and history, he was found down in the garage and did not remember how he ended up there. Denies history of seizures. He takes Depakote for psychiatric disorder. Has questionable carbon monoxide poisening and level came back elevated. Neurologically he was recommended to get an MRI of brain and EEG to rule out MERCANTILE REPORTER pathology. He admits that he drinks on regular basis and recognizes that his tremors are because of drinking. MRI of brain completed and showed no acute intracranial abnormality. Routine EEG was completed and showed essentially normal study. Currently, the patient feels fine and is eating in sitting position comfortably. Past Med Surg Social Fam HX - Past Medical History Medical history: hypertension Psychiatric history: bipolar, depression, schizophrenia, other (schizoaffective disorder, manic disorder) - Past Surgical History Surgical History: no surgical history - Social History Smoking Status: Current every day smoker Smokeless Tobacco Status: No Alcohol use: occasionally (but lots, when he does) Drug use: none, other (unclear) - Family History Mother History Unknown: Yes Medications and Allergies Divalproex (24 HR) [Depakote ER (24 HR)] 1,000 mg PO HS 05/23/15 [History] Perphenazine [Trilafon] 8 mg PO BID 05/23/15 [History] Benztropine [Cogentin] 1 mg PO BID 04/07/17 [History] Fluticasone Propionate Nasal [Flonase] 50 mcg NS DAILY 04/07/17 [History] Lisinopril [Zestril] 40 mg PO DAILY 04/07/17 [History] Loratadine [Claritin] 10 mg PO DAILY 04/07/17 [History] hydroCHLOROthiazide [Hydrochlorothiazide] 12.5 mg PO DAILY 04/07/17 [History] Allergies No Known Allergies Allergy (Verified 05/23/15 17:21) All Systems: A 10-system review of systems was performed and is negative for pertinent findings except as documented above in the HPI. Physical Examination - Vital Signs Vital Signs: Initial Vital Signs Temp Pulse Resp BP Pulse Ox 98.8 F 108 16 128/76 96 04/06/17 00:29 04/06/17 00:29 04/06/17 00:29 04/06/17 00:29 04/06/17 00:29 - Constitutional General appearance: comfortable - Neurologic Sensorimotor examination: intact Detailed motor examination: grossly full strength in all extremities Motor examination - right side: 5/5: deltoids, biceps, triceps, wrist flexion, wrist extension, home health care worker, hip flexors, tibialis Anterior, quadriceps, toe extension (EHL), plantarflexion Motor examination - left side: 5/5: deltoids, biceps, triceps, wrist flexion, wrist extension, hip flexors, home health care worker, quadriceps, tibialis Anterior, toe extension (EHL), plantarflexion Detailed sensory examination: intact Posture: other (None) Reflexes: Biceps: 1+, Triceps: 1+, Brachioradialis: 1+, Patella: 1+, Achilles: 1 + Mental Status Examination: awake, alert, oriented to person, oriented to place, oriented to time, follows commands appropriately, answers questions appropriately, no agnosia, no aphasia, no aproxia Cranial nerve examination: PERRL, EOMI, visual koenig intact, corneal reflexes brisk symmetrically, sensory to face intact, mastication intact, no facial asymmetry is present, no dysarthria, hearing is intact symmetrically, soft palate elevates bilaterally upon phonation, gag reflex intact, flexes SCM and trapezius muscles symmetrically with full power, tongue protrudes midline, no atrophy or facial fasiculations present Cerebellar examination: no dysmetria (Some fine tremors noted on both hands. ), performs finger to nose and heel to etienne symmetrically without ataxia, no gait ataxia, no truncal ataxia, no difficulty with rapid alternating movements Results - Laboratory Findings CBC and BMP: 04/07/17 01:10 04/07/17 01:10 Abnormal lab findings: Abnormal lab results RBC 4.11 M/mcL (4.19-5.50) L 04/07/17 01:10 MCV 101.0 fL (83.0-100.0) H 04/07/17 01:10 Carboxyhemoglobin 5.3 % (0-5) H 04/06/17 06:28 Creatinine 0.71 mg/dL (0.72-1.25) L 04/07/17 01:10 Glucose 132 mg/dL (70-99) H 04/07/17 01:10 Globulin 3.8 g/dL (2.4-3.5) H 04/06/17 01:47 Albumin/Globulin Ratio 0.9 (1.1-2.2) L 04/06/17 01:47 Ur Specific [place] 1.027 (1.010-1.025) H 04/06/17 02:00 Urine Ketones Trace mg/dL (Negative) H 04/06/17 02:00 Consult Discharge Plan - Plan Referrals: NONE,PCP [Primary Care Provider] - () Peyman Freedman, PAC [Physician Personnel Recruiter] - 04/28/17 11:40 am
--- NOTE | 2017-04-07 15:35 | Consult Note ---
Date of Encounter: 04/07/17 Time of Encounter: 15:00 History of Present Illness Requesting Physician: Pepe Gonzalez Reason for consult: assess for safety History of present illness: Mr. Orlando is a 46 year old W male seen today for consult for assessing safety. Patient was bought by EMS for Altered Mental status. He at present able to give history. He has h/o Schizoaffective and Bipolar disorder as per him , has been seeing out patient Psychiatrist at [place] unable to recall her name states it is Charito something. he has been on depakote and perphenazine and benztropin for his Schizoaffective disorder. he lives with room mates and is on disability. HE denies any substance use except Alcohol , states he remembers he took 2-3 24 oz beer one day before he was bought here, he drinks 2-3 times a week and smoke 1.5 ppd. Patient has history of mental illness since age 21 when he was confined and given Navane , he has previous psych. in patient. none recent. he at present denies any psychosis, no paranoia, denies suicidal ideation or HI. He was coherent , alert and able to give history, at times difficulty in concentration noted. A/P Schizoaffective disorder stable. Alcohol use disorder. Plan continue his psych meds need to follow up outpatient psychiatrist. patient at present not in imenent danger to self/others. CC: Pepe Gonzalez Past Med Surg Social Fam HX - Past Medical History Medical history: hypertension - Past Psychiatric History Psychiatric history: Reports: bipolar, schizophrenia, previous psychiatric hospitalization Family psychiatric history: Unknown Family History of Suicide: Unknown - Past Surgical History Surgical History: no surgical history - Social History Smoking Status: Current every day smoker Smokeless Tobacco Status: No Alcohol use: occasionally (but lots, when he does) Drug use: none, other (unclear) - Family History Mother History Unknown: Yes Medications & Allergies Divalproex (24 HR) [Depakote ER (24 HR)] 1,000 mg PO HS 05/23/15 [History] Perphenazine [Trilafon] 8 mg PO BID 05/23/15 [History] Benztropine [Cogentin] 1 mg PO BID 04/07/17 [History] Fluticasone Propionate Nasal [Flonase] 50 mcg NS DAILY 04/07/17 [History] Lisinopril [Zestril] 40 mg PO DAILY 04/07/17 [History] Loratadine [Claritin] 10 mg PO DAILY 04/07/17 [History] hydroCHLOROthiazide [Hydrochlorothiazide] 12.5 mg PO DAILY 04/07/17 [History] Allergies No Known Allergies Allergy (Verified 05/23/15 17:21) Review of Systems Psychiatric: Reports: difficulty concentrating Mental Status Exam Patient orientation: Yes Person (patient at present not in imenent danger to self/others , baseline unknown .), Yes Time Level of alertness: Alert Patient appearance: Unkempt Behavior: calm, cooperative Psychomotor activity: Normal Eye contact: Maintains Eye Contact Mood description: Euthymic/stable Affect description: constricted Speech pattern: Slowed Speech volume: Normal Thought process: Intact Thought content: Yes Intact Attention span: Unable to Sustain Attention Memory description: Grossly Intact Patient reliability: Reliable Historian Intelligence estimate: Average Judgment: Good Insight: Partial Results - Vital Signs Vital signs: Temp Pulse Resp BP Pulse Ox 99.4 F 98 18 146/94 98 04/07/17 11:49 04/07/17 11:49 04/07/17 11:49 04/07/17 11:49 04/07/17 11:49 - Labs Labs: Laboratory Last Values WBC 8.6 K/mcL (4.3-11.1) 04/07/17 01:10 RBC 4.11 M/mcL (4.19-5.50) L 04/07/17 01:10 Hgb 13.3 g/dL (12.9-16.9) 04/07/17 01:10 Hct 41.5 % (37.5-50.1) 04/07/17 01:10 MCV 101.0 fL (83.0-100.0) H 04/07/17 01:10 MCH 32.4 pg (28.0-33.3) 04/07/17 01:10 MCHC 32.0 g/dL (31.6-35.5) 04/07/17 01:10 RDW 12.5 % (11.5-14.5) 04/07/17 01:10 Plt Count 262 K/mcL (140-400) 04/07/17 01:10 MPV 9.5 fL (9.4-12.4) 04/07/17 01:10 Immature Gran % 0.6 % (0-4) 04/07/17 01:10 Seg Neutrophils % 68.4 % 04/07/17 01:10 Lymphocytes % 21.4 % 04/07/17 01:10 Monocytes % 6.3 % 04/07/17 01:10 Eosinophils % 2.6 % 04/07/17 01:10 Basophils % 0.7 % 04/07/17 01:10 Neutrophils # 5.9 K/mcL (1.6-8.9) 04/07/17 01:10 Lymphocytes # 1.8 K/mcL (0.6-4.6) 04/07/17 01:10 Monocytes # 0.5 K/mcL (0.0-1.3) 04/07/17 01:10 Eosinophils # 0.2 K/mcL (0.0-0.6) 04/07/17 01:10 Basophils # 0.1 K/mcL (0.0-0.2) 04/07/17 01:10 Immature Plt Fraction 3.9 % (1.1-6.1) 04/06/17 01:47 PT 11.7 Seconds (9.4-12.1) 04/06/17 01:47 INR 1.1 04/06/17 01:47 APTT 32.5 Seconds (26.0-36.0) 04/06/17 01:47 Carboxyhemoglobin 5.3 % (0-5) H 04/06/17 06:28 Sodium 137 mEq/L (136-145) 04/07/17 01:10 Potassium 4.1 mEq/L (3.5-4.5) 04/07/17 01:10 Chloride 104 mEq/L (98-109) 04/07/17 01:10 Carbon Dioxide 26 mEq/L (19-29) 04/07/17 01:10 BUN 12 mg/dL (8-26) 04/07/17 01:10 Creatinine 0.71 mg/dL (0.72-1.25) L 04/07/17 01:10 Est GFR ( Amer) > 60 (> 60) 04/07/17 01:10 Est GFR (Non-Af Amer) > 60 (> 60) 04/07/17 01:10 BUN/Creatinine Ratio 17 (6-26) 04/07/17 01:10 Glucose 132 mg/dL (70-99) H 04/07/17 01:10 POC Glucose 77 (58-89) 04/06/17 12:49 Calculated Osmolality 286 (280-300) 04/07/17 01:10 Lactic Acid 1.5 mmol/L (0.5-2.2) 04/06/17 13:54 Calcium 8.7 mg/dL (8.6-10.8) 04/07/17 01:10 Magnesium 1.9 mg/dL (1.6-2.6) 04/07/17 01:10 Total Bilirubin 0.8 mg/dL (0.2-1.2) 04/06/17 01:47 Direct Bilirubin 0.3 mg/dL (0.0-0.5) 04/06/17 01:47 Indirect Bilirubin 0.5 mg/dL (0.0-1.2) 04/06/17 01:47 AST 29 Units/L (5-34) 04/06/17 01:47 ALT 51 Units/L (0-55) 04/06/17 01:47 Alkaline Phosphatase 68 Units/L (38-126) 04/06/17 01:47 Ammonia 32 mcmol/L (18-72) 04/06/17 01:47 Creatine Kinase 164 Units/L (30-200) 04/06/17 19:22 Troponin I 0.00 ng/mL (0-0.03) 04/06/17 19:22 Serum Total Protein 7.3 g/dL (6.0-8.3) 04/06/17 01:47 Albumin 3.5 g/dL (3.5-5.0) 04/06/17 01:47 Globulin 3.8 g/dL (2.4-3.5) H 04/06/17 01:47 Albumin/Globulin Ratio 0.9 (1.1-2.2) L 04/06/17 01:47 TSH 1.150 mcIU/mL (0.350-4.840) 04/06/17 01:47 Urine Color Dark Yellow (Yellow) 04/06/17 02:00 Urine Clarity Clear (Clear) 04/06/17 02:00 Urine pH 5.5 pH Units (5.0-8.0) 04/06/17 02:00 Ur Specific [place] 1.027 (1.010-1.025) H 04/06/17 02:00 Urine Protein Negative mg/dL (Neg-Trace) 04/06/17 02:00 Urine Glucose (UA) Normal mg/dL (Normal) 04/06/17 02:00 Urine Ketones Trace mg/dL (Negative) H 04/06/17 02:00 Urine Blood Negative (Negative) 04/06/17 02:00 Urine Nitrite Negative (Negative) 04/06/17 02:00 Urine Bilirubin Negative (Negative) 04/06/17 02:00 Urine Urobilinogen Normal mg/dL (Normal) 04/06/17 02:00 Ur Leukocyte Esterase Negative (Negative) 04/06/17 02:00 Ur Culture Indicated? NO (NO) 04/06/17 02:00 Urine Opiates Screen Negative ng/mL (Rsbfmj=992) 04/06/17 02:00 Ur Barbiturates Screen Negative ng/mL (Qzxnrf=188) 04/06/17 02:00 Ur Phencyclidine Scrn Negative ng/mL (Cutoff=25) 04/06/17 02:00 Ur Amphetamines Screen Negative ng/mL (Bbuwea=2204) 04/06/17 02:00 U Benzodiazepines Scrn Negative ng/mL (Rmbaud=525) 04/06/17 02:00 Urine Cocaine Screen Negative ng/mL (Cutoff= 300) 04/06/17 02:00 U Marijuana (THC) Screen Negative ng/mL (Cutoff = 50) 04/06/17 02:00 Ethyl Alcohol < 10 mg/dL (0-10) 04/06/17 01:47 - Impressions Impressions Brain MRI 04/06/17 10:28 IMPRESSION: No acute intracranial abnormality. Minimal chronic microvascular disease. D/ / Santiago Farley MD / Santiago Farley MD Interpreting Provider: Santiago Farley MD - Diagnostic Studies MRI - head Status: image reviewed by me ( ), pending Consult Discharge Plan - Plan Additional Instructions: need to follow up with his out patient psychiatrist. Referrals: NONE,PCP [Primary Care Provider] - () Peyman Freedman, PAC [Physician Cuffing Machine Operator] - 04/28/17 11:40 am
[2017-04-07 16:27] VITALS: BP 150/108
--- NOTE | 2017-04-07 16:44 | Discharge Summary ---
Date of Encounter: 04/07/17 Time of Encounter: 16:39 - Discharge Diagnosis (1) Acute delirium Priority: Primary Status: Acute (2) Acute metabolic encephalopathy Priority: Primary Status: Acute (3) Seizure Priority: Secondary Status: Ruled-out Comments: ruled out (4) Carbon monoxide exposure Priority: Secondary Status: Resolved (5) Rhabdomyolysis Priority: Secondary Status: Resolved Qualifiers: Qualified Code(s): M62.82 - Rhabdomyolysis (6) Psychiatric disorder Priority: Secondary Status: Chronic (7) Schizoaffective disorder Priority: Secondary Status: Chronic Qualifiers: Qualified Code(s): F25.9 - Schizoaffective disorder, unspecified (8) Bipolar 1 disorder with moderate heladio Priority: Secondary Status: Chronic - Discharge Medications Prescriptions: Nicotine Patch [Nicoderm] 21 mg TD DAILY #30 Home Medications: Divalproex (24 HR) [Depakote ER (24 HR)] 1,000 mg PO HS 05/23/15 [History] Perphenazine [Trilafon] 8 mg PO BID 05/23/15 [History] Benztropine [Cogentin] 1 mg PO BID 04/07/17 [History] Fluticasone Propionate Nasal [Flonase] 50 mcg NS DAILY 04/07/17 [History] Lisinopril [Zestril] 40 mg PO DAILY 04/07/17 [History] Loratadine [Claritin] 10 mg PO DAILY 04/07/17 [History] Nicotine Patch [Nicoderm] 21 mg TD DAILY #30 04/07/17 [Rx] hydroCHLOROthiazide [Hydrochlorothiazide] 12.5 mg PO DAILY 04/07/17 [History] Allergies/Adverse Reactions: Allergies No Known Allergies Allergy (Verified 05/23/15 17:21) Procedures/tests Complete & Pending: Procedures Performed prior 72 hours Category Date Time Status MR head/brain wo con [MR] Routine MRI 04/06/17 10:28 Completed Date of admission: 04/06/17 05:37 Primary care physician: PCP NONE Consults: 04/06/17 07:19 Consult to Western Philosophy Professor [CONS] Routine Reason for SW Consult: Patient's home living situation is unclear at this time. Patient found by police in a local parking lot for an undetermined amount of time and patient is unable to appropriately respond to questions at time of admission. 04/06/17 10:09 Consult to Neurology [CONS] Routine Consulting Provider: Neurology [facility] Reason for Consult: AMS Call Completed: Yes 04/07/17 10:56 Consult to Psychiatry [CONS] Routine Consulting Provider: Psychiatry [place] Reason for Consult: ASSESS FOR SAFETY AT HOME. Call Completed: Yes 04/07/17 12:37 Consult to Interpret Exam [CONS] Routine Consulting Provider: Adilene Lundberg Consult to Interpret Exam: Interpret Sleep Study - Patient Status Disposition: Home, Self-Care Condition: Good Overall status at discharge: patient is back to baseline - Discharge Instructions Follow Up With: NONE,PCP [Primary Care Provider] - () Peyman Freedman, PAC [Physician [employer] Police Sergeant] - 04/28/17 11:40 am Additional Instructions: need to follow up with his out patient psychiatrist. - Diet and Activity Activity: increase activity as tolerated Diet: advance to your usual diet Hospital course: Mr. Orlando is a 46 year old male with unknown PMH who was sent to [facility] ED via EMS after being found on the ground grabbing things. IV Narcan was given but no significant response noted. On the encounter, patient remains somnolent but arousable to verbal stimuli. Pt was admitted in the hospital for severe acute delirium. Pt was placed on director of cardiac rehabilitation and evaluated by neurologist. He did have MRI fo brain - no acute CVA, EEG -ruled out any seizure activity. It looks like he is back to his base line, however I was worried about his Bipolar , and maniac episodes. We consulted psychiatrist who evaluated him today and cleared him to d/c home and recommend to continue his regular home medications and f/u with psychiatrist as an out pt. - Time Spent with Patient Total time spent providing and/or coordinating discharge services: - Constitutional Vitals: Temp Pulse Resp BP Pulse Ox 98.1 F 90 18 150/108 96 04/07/17 16:26 04/07/17 16:26 04/07/17 16:26 04/07/17 16:26 04/07/17 16:26 General appearance: Present: A&O X 3, no acute distress (sleeping comfortably). Absent: answers questions appropriately - Head Head exam: Present: atraumatic, normal inspection - Respiratory Respiratory exam: Present: CTAB. Absent: accessory muscle use, rales, rhonchi, wheezes - Cardiovascular Cardiovascular exam: Present: RRR, +S1, +S2. Absent: diastolic murmur, gallop, rubs, systolic murmur - GI/Abdominal GI/Abdominal exam: Present: normal bowel sounds, soft, no peritoneal signs. Absent: distended, tenderness - Extremities Exam Extremities exam: Absent: calf tenderness, pedal edema, tenderness - Neurological Exam Neurological exam: Present: CN II-XII intact, oriented X3, no focal deficits. Absent: pronater drift, facial droop, speech deficit - Psychiatric Psychiatric exam: Present: anxious. Absent: manic, suicidal ideation
[2017-04-09 18:29] LABS: Amphetamines NEGATIVE ng/mL (Cutoff 30); Barbiturates NEGATIVE ng/mL (Cutoff 75); Benzodiazepines NEGATIVE ng/mL (Cutoff 75); Cocaine NEGATIVE ng/mL (Cutoff 30); Methadone NEGATIVE ng/mL (Cutoff 40); Methamphetamines NEGATIVE ng/mL (Cutoff 30); Opiates NEGATIVE ng/mL (Cutoff 30); Phencyclidine NEGATIVE ng/mL (Cutoff 15)
== END 2017-04-07 17:29 | disposition home or self-care (01) ==
LOC: EMEROO 00:27 → ICNU 00:27 → 2NNU 05:52
PROVIDERS: ADMIT Hospitalist; ATTEND Internal Medicine

== ENCOUNTER 2019-06-17 18:36 | Observation (INO) ==
[2019-06-17 19:25] LABS: Basophils # 0.1 K/mcL (0.0-0.2); Basophils % 0.5 %; Eosinophils # 0.1 K/mcL (0.0-0.6); Eosinophils % 1.1 %; Hematocrit 43.1 % (37.5-50.1); Immature Granulocytes % 0.5 % (0-4); Lymphocytes # 1.8 K/mcL (0.6-4.6); Mean Corpuscular HGB Conc 34.6 g/dL (31.6-35.5); Mean Corpuscular Hemoglobin 36.8 pg (28.0-33.3); Mean Corpuscular Volume 106.4 fL (83.0-100.0); Mean Platelet Volume 9.6 fL (9.4-12.4); Monocytes # 0.8 K/mcL (0.0-1.3); Monocytes % 8.7 %; Neutrophils # 6.5 K/mcL (1.6-8.9); Platelet Count 194 K/mcL (140-400); Red Blood Count 4.05 M/mcL (4.19-5.50); Red Cell Distribution Width 12.3 % (11.5-14.5); Segmented Neutrophils % 70.2 %; White Blood Count 9.2 K/mcL (4.3-11.1)
[2019-06-17 19:26] LABS: Hemoglobin 14.9 g/dL (12.9-16.9)
[2019-06-17 19:34] LABS: Amphetamine Screen,Urine Negative ng/mL (Cutoff=1000); Barbiturate Screen,Urine Negative ng/mL (Cutoff=200); Benzodiazepines Screen,Urine Negative ng/mL (Cutoff=200); Cannabinoid Screen,Urine Negative ng/mL (Cutoff = 50); Cocaine Screen,Urine Negative ng/mL (Cutoff= 300); Opiate Screen,Urine Negative ng/mL (Cutoff=300); Phencyclidine Screen,Urine Negative ng/mL (Cutoff=25)
[2019-06-17 19:44] LABS: Acetaminophen < 10 mcg/mL (10-20); Alanine Aminotransferase 32 Units/L (7-52); Albumin 4.7 g/dL (3.5-5.7); Albumin/Globulin Ratio 1.6 (1.1-2.2); Alkaline Phosphatase 54 Units/L (34-104); Aspartate Amino Transferase 34 Units/L (13-39); BUN/Creatinine Ratio 29 (6-26); Bilirubin,Direct 0.2 mg/dL (0.0-0.2); Bilirubin,Indirect 1.2 mg/dL (0.0-1.2); Bilirubin,Total 1.4 mg/dL (0.3-1.0); Blood Urea Nitrogen 18 mg/dL (6-20); Calcium 9.9 mg/dL (8.6-10.3); Carbon Dioxide 23 mEq/L (23-29); Chloride 99 mEq/L (98-107); Ethanol < 10 mg/dL (Less than 10); Glucose 121 mg/dL (70-105); Osmolality,Calculated 281 (280-300); Potassium 4.3 mEq/L (3.5-5.1); Salicylate < 2.5 mg/dL (15.0-30.0); Sodium 134 mEq/L (136-145); Total Protein 7.7 g/dL (6.4-8.9); eGFR For African Americans > 60 (> 60); eGFR For Non-African Americans > 60 (> 60)
[2019-06-17 20:48] LABS: Valproate < 4 mcg/mL (50-100)
[2019-06-17] MEDS ORDERED: *HR* LORazepam 1 MG TABLET PO ONE (22:30)
[2019-06-17] MEDS ORDERED: Thiamine (B-1) 200 MG/2 ML VIAL IM ONE (22:30)
[2019-06-18] MEDS ORDERED: Naloxone 0.4 MG/ML INJ IVP PRN (00:22)
[2019-06-18] MEDS ORDERED: 0.9 % Sodium Chloride 1,000 ML IVC SCH (00:30)
[2019-06-18 02:59] LABS: Bilirubin,Urine Negative (Negative); Blood,Urine Negative (Negative); Clarity,Urine Clear (Clear); Color,Urine Yellow (Yellow); Glucose,Urine (UA) Normal (Normal); Ketones,Urine Negative (Negative); Leukocyte Esterase,Urine Negative (Negative); Nitrite,Urine Negative (Negative); PH,Urine 6.5 pH Units (5.0-8.0); Protein,Urine Trace mg/dL (Neg-Trace); Urobilinogen,Urine Normal (Normal)
[2019-06-18 05:31] VITALS: BP 111/75
[2019-06-18] MEDS ORDERED: *HR* Heparin 5,000 UNIT/ML VIAL SQ SCH (06:00)
[2019-06-18 06:33] LABS: Basophils # 0.1 K/mcL (0.0-0.2); Basophils % 0.6 %; Eosinophils # 0.1 K/mcL (0.0-0.6); Eosinophils % 1.5 %; Hematocrit 39.6 % (37.5-50.1); Immature Granulocytes % 0.5 % (0-4); Lymphocytes # 1.5 K/mcL (0.6-4.6); Lymphocytes % 16.9 %; Mean Corpuscular HGB Conc 32.8 g/dL (31.6-35.5); Mean Corpuscular Hemoglobin 36.5 pg (28.0-33.3); Mean Corpuscular Volume 111.2 fL (83.0-100.0); Mean Platelet Volume 9.5 fL (9.4-12.4); Monocytes # 0.9 K/mcL (0.0-1.3); Monocytes % 10.3 %; Neutrophils # 6.1 K/mcL (1.6-8.9); Platelet Count 155 K/mcL (140-400); Red Blood Count 3.56 M/mcL (4.19-5.50); Red Cell Distribution Width 12.5 % (11.5-14.5); Segmented Neutrophils % 70.2 %; White Blood Count 8.7 K/mcL (4.3-11.1)
[2019-06-18 06:54] LABS: Platelet Estimate Normal (Normal)
[2019-06-18 06:55] LABS: % Iron Saturation 21 % (20-55); Alanine Aminotransferase 26 Units/L (7-52); Albumin 3.9 g/dL (3.5-5.7); Albumin/Globulin Ratio 1.6 (1.1-2.2); Alkaline Phosphatase 43 Units/L (34-104); Aspartate Amino Transferase 31 Units/L (13-39); BUN/Creatinine Ratio 22 (6-26); Bilirubin,Total 1.1 mg/dL (0.3-1.0); Blood Urea Nitrogen 14 mg/dL (6-20); Calcium 8.6 mg/dL (8.6-10.3); Carbon Dioxide 23 mEq/L (23-29); Chloride 106 mEq/L (98-107); Chol/HDL Ratio 4.2 (0-4.9); Cholesterol 172 mg/dL (< 200); Ethanol < 10 mg/dL (Less than 10); Globulin 2.4 g/dL (2.4-3.5); Glucose 80 mg/dL (70-105); HDL Cholesterol 41 mg/dL (40-59); Iron 73 mcg/dL (65-175); LDL Cholesterol,Calculated 102 mg/dL (0-99); Osmolality,Calculated 283 (280-300); Potassium 3.9 mEq/L (3.5-5.1); Sodium 137 mEq/L (136-145); Total Protein 6.3 g/dL (6.4-8.9); Transferrin 244 mg/dL (203-362); Triglycerides 146 mg/dL (< 150); eGFR For African Americans > 60 (> 60); eGFR For Non-African Americans > 60 (> 60)
[2019-06-18 07:08] LABS: Thyroid Stimulating Hormone 1.639 mcIU/mL (0.340-5.600)
[2019-06-18 07:09] LABS: Triiodothyronine (T3) Free 3.58 pg/mL (2.50-3.90)
[2019-06-18 07:14] LABS: Ferritin 187 ng/mL (20-250)
[2019-06-18] MEDS ORDERED: Thiamine (B-1) 100 MG TABLET PO SCH (09:00)
[2019-06-18] MEDS ORDERED: Folic Acid 1 MG TABLET PO SCH (09:00)
[2019-06-18] MEDS ORDERED: Vitamin B Complex/Vit C/Vit E 1 EACH TABLET PO SCH (09:00)
[2019-06-18 09:34] LABS: Estimated Average Glucose 100 mg/dl
[2019-06-18] MEDS ORDERED: Perphenazine 8 MG TABLET PO SCH (10:00)
[2019-06-18] MEDS ORDERED: *HR* LORazepam 2 MG/ML VIAL IVP PRN ×3 (10:00)
== END 2019-06-18 12:55 | disposition left against medical advice (07) ==
LOC: 2NENU 18:36 → EMEROOARM 18:36 → 2NENU 06-18 00:07
PROVIDERS: ADMIT Family Medicine; ATTEND Family Medicine